=== PATIENT | male | born 1970 | race Caucasian/White ===

== ENCOUNTER → 2024-01-05 13:00 | Outpatient (REF) | payer OTHER, SELFPAY | LOC: RAD 13:00 | PROVIDERS: ATTENDING PHYSICIAN Nurse Practitioner | DX: R42 Dizziness and giddiness (principal); R09.89 Other specified symptoms and signs involving the circulatory and respiratory systems | CPT/HCPCS: 93880 ==

== ENCOUNTER → 2024-01-08 07:09 | Outpatient (REF) | payer OTHER, SELFPAY | LOC: PAVMRI 07:09 | PROVIDERS: ATTENDING PHYSICIAN Psychiatry & Neurology Neurology; FAMILY PHYSICIAN Nurse Practitioner | DX: R42 Dizziness and giddiness (principal); R40.20 Unspecified coma; R41.89 Other symptoms and signs involving cognitive functions and awareness | CPT/HCPCS: 70544; 70549; 70553; A9585 ==

== ENCOUNTER → 2024-01-20 11:14 | Outpatient (REF) | payer OTHER, SELFPAY ==
--- NOTE | 2024-01-20 22:55 | EEG.RPT ---
Electroencephalogram Report
Recording
Date of EE01/20/24
Type of EEG: Routine
Length of EEG recordin mins
Done with Video Recording: Yes
Patient Status: Outpatient
Recording Conditions: Awake
Hyperventilation Performed: Yes
Photic Stimulation Performed: Yes
Report
METHODS
A 21 channel digitized electroencephalogram was performed at [facility]. The 10/20 international system of electrode placement was used. In addition to EEG, the patient was monitored for EKG. The duration of the recording was 30 minutes.
BACKGROUND
During the awake state, with the eyes closed, the background consisted of a normal amplitude, 9-10 Hertz posterior reactive rhythm that attenuated appropriately with eye opening. Beta activity was distributed diffusely with an anterior predominance.
There was a normal anterior-posterior voltage gradient. With eye opening the background activity changed to a low voltage mixture of alpha, beta, and occasional theta range frequencies. There were no significant asymmetries of background activity
noted.
HYPERVENTILATION
Hyperventilation resulted in diffuse slowing of the background activity without appearance of abnormal activity.
PHOTIC STIMULATION
Photic stimulation using a step-ford increase in photic frequency varying from 1-31 Hertz resulted in driving responses at various frequencies but no appearance of abnormal activity.
ABNORMAL EEG ACTIVITY
This EEG is abnormal due to the presence of intermittent diffuse paroxysmal rhythmic bursts of delta range slowing lasting 1-3 seconds each that were at times frontally predominant.
CLINICAL EVENTS
None
INTERPRETATION AND CLINICAL CORRELATION
This EEG is abnormal due to the presence of intermittent diffuse paroxysmal rhythmic bursts of delta range slowing lasting 1-3 seconds each that were at times frontally predominant. The study is consistent with intermittent moderate diffuse
cerebral dysfunction, nonspecific in etiology. The activity was not clearly epileptiform in nature.
== END ==
LOC: RCS 11:14
PROVIDERS: ATTENDING PHYSICIAN Psychiatry & Neurology Neurology; FAMILY PHYSICIAN Nurse Practitioner
DX: R40.20 Unspecified coma (principal)
CPT/HCPCS: 95813

== ENCOUNTER 2024-01-26 08:17 | Outpatient (RCR) | payer OTHER, SELFPAY | END 2024-01-26 23:59 | disposition home or self-care (01) | LOC: ROT 08:17 | PROVIDERS: ATTENDING PHYSICIAN Psychiatry & Neurology Neurology; FAMILY PHYSICIAN Nurse Practitioner | DX: R41.89 Other symptoms and signs involving cognitive functions and awareness (principal); Z73.6 Limitation of activities due to disability | CPT/HCPCS: 97167 ==

== ENCOUNTER → 2024-04-20 09:06 | Outpatient (REF) | payer OTHER, SELFPAY | LOC: EEG 09:06 | PROVIDERS: ATTENDING PHYSICIAN Psychiatry & Neurology Neurology; FAMILY PHYSICIAN Nurse Practitioner | DX: R41.89 Other symptoms and signs involving cognitive functions and awareness (principal) | CPT/HCPCS: 95708 ==

== ENCOUNTER 2025-10-08 10:32 | Emergency (ER) | payer OTHER, SELFPAY ==
[2025-10-08 10:35] VITALS: BP 162/91
--- NOTE | 2025-10-08 11:58 | ED.GENMED ---
History of Present Illness
General
Chief Complaint: Musculo-Skeletal Complaint
Source: patient
Exam Limitations: none
Time Seen by Provider: 10/08/25 11:24
Nursing documentation reviewed up to this point in time: agreed with
History of Present Illness
History of Present Illness:
Patient is a 55 yr old male who has had chronic wrist issues. Patient has had steroid injections into the left wrist in the past by [facility] orthopedics. He reports for the past month his wrist has been acting up. He has been walking a very large
dog and that seems to exacerbate his symptoms. 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 While flushing the toilet several nights ago he felt pain and heard a pop in his left wrist. He denies any fever chills. He is not taking ibuprofen normally but
did take a dose this morning. He denies any redness fever chills.
Patient has an appointment with [facility] orthopedics in the next several weeks.
Past History
Past History
ED Past Medical History: GERD, HTN and Hypercholesterolemia
ED Past Surgical History: Orthopedic (ACL repair)
Social History
Tobacco: Smoker
Alcohol: None
Personal:
Living: with family
Phy Exam
General Physical Exam
General Presentation: well appearing
General age: appears stated age
General Skin: warm and dry
General Habitus: normal
General Mental: alert
General Hydration: appears well hydrated
Neurological Exam
Neurological Exam: alert and oriented x3
Musculoskeletal Exam
Musculoskeletal Exam: other (LUE with strong pulses + swelling to dorsal left wrist left hand no erythema strong pulses normal distal sensation with cap refill pain with flexion extension)
Course
Orders/Labs/Results
Orders:
Orders
10/08/25 11:54
Ketorolac [Toradol] 30 mg IM NOW STA
10/08/25 11:55
Acetaminophen [Tylenol] 1,000 mg PO NOW STA
Wrist, Left 3 Views CR [CR Wrist - Left Min 3 Views] Urgent
Comment:
Reason For Exam: pain
10/08/25 13:37
Splints/Slings/Crut- Treatment ONCE
Location: Left
Type of Splint: Francitas Wrist
Vital Signs
Initial and Last Documented VS:
Initial Vital Signs
Temp Pulse Resp BP Pulse Ox
98.4 F 65 18 162 98
10/08/25 10:35 10/08/25 10:35 10/08/25 10:35 10/08/25 10:35 10/08/25 10:35
Last Documented Vital Signs
Temp Pulse Resp BP Pulse Ox
98.4 F 65 18 162 98
10/08/25 10:35 10/08/25 10:35 10/08/25 10:35 10/08/25 10:35 10/08/25 12:00
MDM/Problems Addressed
Differential Diagnosis Includes:
Not limited to overuse injury degenerative changes tendinitis
MDM/Problems Addressed:
Symptoms are consistent with chronic wrist pain degenerative issues possible tendinitis however no obvious infection or fracture. Will DC with universal splint NSAIDs. Patient has appoint with [facility] in the next several weeks discussed to call
Thursday to expedite appointment
*Radiology
Radiology exam reviewed: radiology read reviewed
*Pulse Oximetry
SaO2: 98
Oxygen Mode of Delivery: Room air
Patient hypoxic: no
*Critical Care Note
Total Time (30-74mins, 75-104mins- exclusive of procedures): Not Applicable
ED Attending Note
-
Portions of this chart may have been created with voice recognition software.� Occasional wrong word or��sound alike� substitutions may have occurred due to the inherent limitations of voice recognition software.
Discharge Plan
Departure
Patient Disposition: Home (Routine Discharge)
Date of Disposition: 10/08/25
Time of Disposition: 13:39
Patient with high blood pressure during this ER visit?: Yes
Condition: Fair
Covid-19: Not Applicable
Discharge Problem:
Left wrist pain
Instructions: Muscle and Bone Pain (DC)
Prescriptions:
No Action
Ativan
atorvastatin
verapamil
buprenorphine-naloxone [Suboxone] 8-2 mg film
1 film buccal DAILY Qty: 7 0RF
Referrals:
Rony Lemon CRNP [Family Provider]
Activity Restrictions/Additional Instructions:
Alternate between ibuprofen and Tylenol. Wear wrist splint for support ;you may remove at night while sleeping if needed. You may continue to intermittently ice. Follow-up with your orthopedic doctor.
please call tomorrow to see if appointment can be expedited. Return if any worsening of symptoms.
Interventions
Interventions:
*Risk Screen - Suicide Last Done: 10/08/25 10:37
*General Assessment Last Done: 10/08/25 10:35
*Neglect/Abuse Screening Last Done: 10/08/25 10:35
ED-Musculoskeletal Assessment Last Done: 10/08/25 11:11
Discharge Date and Time
Print Language: GUAMANIAN
[2025-10-08] MEDS: TORADOL 30 MG IM (12:06)
[2025-10-08] MEDS: TYLENOL 1000 MG PO (12:06)
== END 2025-10-08 14:42 | disposition home or self-care (01) ==
LOC: EMR 10:32
PROVIDERS: EMERGENCY PHYSICIAN Emergency Medicine
DX: M25.532 Pain in left wrist (principal); K21.9 Gastro-esophageal reflux disease without esophagitis; I10 Essential (primary) hypertension; E78.00 Pure hypercholesterolemia, unspecified; F17.200 Nicotine dependence, unspecified, uncomplicated
CPT/HCPCS: 99283; 73110

== ENCOUNTER → 2025-11-01 06:54 | Outpatient (REF) | payer OTHER, SELFPAY | LOC: RAD 06:54 | DX: R10.84 Generalized abdominal pain (principal); R19.8 Other specified symptoms and signs involving the digestive system and abdomen; K92.1 Melena; R11.2 Nausea with vomiting, unspecified; E61.1 Iron deficiency | CPT/HCPCS: 74177; Q9967 ==